=== PATIENT | female | born 1970 | race Caucasian/White ===

== ENCOUNTER 2016-06-14 07:41 | Emergency (ER) | payer BC, OTHER ==
[~2016-06-14] VITALS: Ht 177.8 cm; Wt 77.9 kg
[2016-06-14 09:17] VITALS: BP 166/99
== END 2016-06-14 09:26 | disposition home or self-care (01) ==
LOC: ED 07:45
DX: S93.431A Sprain of tibiofibular ligament of right ankle, initial encounter (principal); S93.621A Sprain of tarsometatarsal ligament of right foot, initial encounter; W10.9XXA Fall (on) (from) unspecified stairs and steps, initial encounter; Y92.008 Other place in unspecified non-institutional (private) residence as the place of occurrence of the external cause; F17.210 Nicotine dependence, cigarettes, uncomplicated; F17.290 Nicotine dependence, other tobacco product, uncomplicated
CPT/HCPCS: 73610; 73630; 99283; L4350; 99282